=== PATIENT | female | born 1975 | race Two or more races ===

== ENCOUNTER 2019-04-23 09:47 | Emergency (ER) | payer OTHER, MEDICAID ==
[2019-04-23] MEDS ORDERED: ONDANSETRON 4 MG TAB.RAPDIS PO ONE (10:05)
--- NOTE | 2019-04-23 10:05 | ER Document Report ---
ED Medical Screen (RME) - General Chief Complaint: Abdominal Pain Stated Complaint: FEVER Time Seen by Provider: 04/23/19 09:59 Mode of Arrival: Ambulatory Information source: Parent Notes: 43-year-old female presents to ED for complaint of cough cold congestion fever nausea vomiting and abdominal pain. Mother and brother states that the patient has lost 10 pounds in the last month and a half. She states that she is eating like she normally does but she is still losing weight. Mother states she has been complaining of pain in lower abdomen. Mother states she is vomiting occasionally. Patient is nonverbal and is unable to express exactly what is going on. Mother states that child is mental retardation and autistic. Mother states she is also anemic. I have greeted and performed a rapid initial assessment of this patient. A comprehensive ED assessment and evaluation of the patient, analysis of test results and completion of medical decision making process will be conducted by an additional ED providers. - Related Data Allergies/Adverse Reactions: No Known Allergies Allergy (Verified 04/23/19 09:59)
[2019-04-23 10:46] LABS: ABSOLUTE LYMPHOCYTES (AUTO) 1.5 10^3/uL (0.5-4.7); ABSOLUTE NEUT (AUTO) 8.7 10^3/uL (1.7-8.2); BASOPHILS % (AUTO) 0.1 % (0-2); EOSINOPHILS % (AUTO) 0.2 % (0-6); HEMATOCRIT 35.5 % (36.0-47.0); HEMOGLOBIN 11.9 g/dL (12.0-15.5); LYMPHOCYTES % (AUTO) 13.3 % (13-45); MEAN CORPUSCULAR HGB CONC 33.4 g/dL (32.0-36.0); MEAN CORPUSCULAR VOLUME 81 fl (80-97); MONOCYTES % (AUTO) 8.7 % (3-13); PLATELET COUNT 213 10^3/uL (150-450); RED BLOOD COUNT 4.38 10^6/uL (3.72-5.28); RED CELL DISTRIBUTION WIDTH 14.8 % (11.5-14.0); SEGMENTED NEUTROPHILS % (AUTO) 77.7 % (42-78); TOTAL CELLS COUNTED % (AUTO) 100 %; WHITE BLOOD COUNT 11.3 10^3/uL (4.0-10.5)
[2019-04-23 10:55] LABS: APPEARANCE,URINE SLIGHTLY-CLOUDY; BILIRUBIN,URINE NEGATIVE (NEGATIVE); GLUCOSE, URINE NEGATIVE (NEGATIVE); KETONES,URINE 20 mg/dL (NEGATIVE); PROTEIN,URINE NEGATIVE (NEGATIVE); URINE SPECIFIC GRAVITY 1.024
[2019-04-23 11:01] LABS: COLOR,URINE DARK YELLOW
[2019-04-23 11:18] LABS: ALBUMIN 3.5 g/dL (3.5-5.0); ALKALINE PHOSPHATASE 139 U/L (38-126); ANION GAP 12 (5-19); ASPARTATE AMINO TRANSFERASE 37 U/L (14-36); BILIRUBIN,DIRECT 0.1 mg/dL (0.0-0.4); BILIRUBIN,TOTAL 0.5 mg/dL (0.2-1.3); BLOOD UREA NITROGEN 18 mg/dL (7-20); CALCIUM 9.8 mg/dL (8.4-10.2); CARBON DIOXIDE 25 mmol/L (22-30); CHLORIDE 106 mmol/L (98-107); GLUCOSE 146 mg/dL (75-110); TOTAL PROTEIN 6.8 g/dL (6.3-8.2)
[2019-04-23] MEDS ORDERED: IBUPROFEN SUSP 100 MG/5 ML ORAL SYRINGE PO ONE (12:05)
[2019-04-23] MEDS ORDERED: NITROFURANTOIN 5 MG/ML SUSP 60 ML PO ONE (12:20)
--- NOTE | 2019-04-23 12:41 | ER Document Report ---
ED General - General Chief Complaint: Abdominal Pain Stated Complaint: FEVER Time Seen by Provider: 04/23/19 09:59 Mode of Arrival: Ambulatory Information source: Patient, Parent, Relative Notes: 43-year-old autistic female presents emergency department with complaints of lower abdominal pain nausea vomiting fever. Mother reports that the patient has had abdominal pain for years. She reports her weight goes up and down up and down. She reports her weight has gone down during the last couple months and she has lost at least 10 pounds. Mother gives history of living in [place] but she recently retired so they moved to [place]. They are here for holidays. Mother reports before they moved to [place], when they were living in [place], the patient was evaluated by her primary care provider for lower abdominal pain. They did an ultrasound and lab test. Patient was not treated for anything. Mother reports the went to [place] on the and then they came to [place]. Mother and brother report that patient started vomiting yesterday she vomited twice and they felt like she had a fever. She felt warm. They never took her temperature. Mother and brother report that she ate cereal today. Reports past medical history of autism and anemia. Patient is not sexually active. TRAVEL OUTSIDE OF THE [place] IN LAST 30 DAYS: No - HPI Onset: Other - Abdominal pain for years vomiting twice yesterday felt warm yesterday Onset/Duration: Persistent Associated symptoms: Fever, Vomiting Exacerbated by: Denies Relieved by: Denies Similar symptoms previously: Yes Recently seen / treated by doctor: Yes - Related Data Allergies/Adverse Reactions: No Known Allergies Allergy (Verified 04/23/19 09:59) Past Medical History - General Information source: Parent - Social History Smoking Status: Never Smoker Chew tobacco use (# tins/day): No Frequency of alcohol use: None Drug Abuse: None Lives with: Family Family History: None Patient has suicidal ideation: No Patient has homicidal ideation: No - Medical History Medical History: Other - Anemia Psychiatric Medical History: Reports: Other - Autism Past Surgical History: Reports: Hx Breast Surgery - biopsy Review of Systems - Review of Systems Notes: Review HPI for review of systems., All other systems negative Physical Exam - Vital signs Vitals: Temp Pulse Resp BP Pulse Ox 97.9 F 138 H 20 141/71 H 99 04/23/19 09:54 04/23/19 09:54 04/23/19 09:54 04/23/19 09:54 04/23/19 09:54 - General General appearance: Appears well, Alert In distress: None - HEENT Head: Normocephalic, Atraumatic Eyes: Normal Conjunctiva: Normal Extraocular movements intact: Yes Eyelashes: Normal Pupils: PERRL Ears: Normal External canal: Normal Tympanic membrane: Normal Sinus: Normal Nasal: Normal Mouth/Lips: Normal Mucous membranes: Normal, Moist Pharynx: Normal. No: Erythema, Peritonsillar abscess, Retropharyngeal abscess, Tonsillar hypertrophy Neck: Normal, Supple. No: Lymphadenopathy - Respiratory Respiratory status: No respiratory distress Chest status: Nontender Breath sounds: Normal Chest palpation: Normal - Cardiovascular Rhythm: Regular Heart sounds: Normal auscultation Murmur: No - Abdominal Inspection: Normal Distension: No distension Bowel sounds: Normal Tenderness: Tender - Lower abdomen tenderness Organomegaly: No organomegaly - Back Back: Normal, Nontender. No: CVA tenderness - Extremities General upper extremity: Normal ROM General lower extremity: Normal ROM - Neurological Neuro grossly intact: Yes Cognition: Normal Orientation: AAOx4 [place] Coma Scale Eye Opening: Spontaneous [place] Coma Scale Verbal: Oriented - for person Sonu Coma Scale Motor: Obeys Commands [place] Coma Scale Total: 15 Speech: Normal - Psychological Associated symptoms: Normal affect, Normal mood - Skin Skin Temperature: Warm Skin Moisture: Dry Skin Color: Normal Course - Re-evaluation Re-evalutation: 04/23/19 12:43 43-year-old female presents with lower abdominal pain vomiting twice yesterday with subjective fever yesterday. Mother and patient's brother report she is had abdominal pain for years. She is been evaluated by her primary care provider for this and nothing has been treated. Patient is laying on the stretcher and although she seems to be bothered by the IV in her arm she is nontoxic looking. Labs show WBCs with leukocytosis at 11.3. UA shows leukocytes hematuria. Patient is tachycardia at 138. We will give her Motrin for pain p.o. fluids and some Macrobid here. Plan to discharge her on Macrobid once her heart rate comes down. Discussed transvaginal ultrasound and CT with family and they declined at this time, reports they do not think the patient would be able to stand it. They think she would need to have some kind of conscious sedation. Patient drinking p.o. fluids heart rate has come down to 1001 02. I believe patient is anxious over saline lock. We will remove her IV. Continue p.o. fluids discharged with prescription for Macrobid. Family was instructed on the importance of monitoring her symptoms return if they become worsening or they become concerned but definitely follow-up with her primary care provider when she returns to [place]. Dictation of this chart was performed using voice recognition software; therefore, there may be some unintended grammatical errors. 04/23/19 14:14 I received a call from [facility]. They do not carry Macrobid suspension. Antibiotic was switched to Keflex 500 mg p.o. twice daily for 5 days. - Vital Signs Vital signs: Temp Pulse Resp BP Pulse Ox 98.0 F 92 16 115/65 99 04/23/19 12:53 04/23/19 13:10 04/23/19 12:53 04/23/19 12:53 04/23/19 12:53 - Laboratory Result Diagrams: 04/23/19 10:33 04/23/19 10:33 Laboratory results interpreted by me: 04/23/19 04/23/19 04/23/19 10:33 10:33 10:33 WBC 11.3 H Hgb 11.9 L Hct 35.5 L RDW 14.8 H Absolute Neuts (auto) 8.7 H Creatinine 0.39 L Glucose 146 H AST 37 H Alkaline Phosphatase 139 H Urine Ketones 20 H Urine Blood SMALL H Urine Urobilinogen 4.0 H Leukocyte Esterase Rfl LARGE H Discharge - Discharge Clinical Impression: Abdominal pain Qualifiers: Abdominal location: lower abdomen, unspecified Qualified Code(s): R10.30 - Lower abdominal pain, unspecified Nausea & vomiting Qualifiers: Vomiting type: unspecified Vomiting Intractability: non-intractable Qualified Code(s): R11.2 - Nausea with vomiting, unspecified Urinary tract infection Qualifiers: Urinary tract infection type: site unspecified Hematuria presence: with hematuria Qualified Code(s): N39.0 - Urinary tract infection, site not specified Condition: Stable Disposition: HOME, SELF-CARE Instructions: Use of Eorb-Nme-Boaujpq Ibuprofen ([facility]), Nitrofurantoin ([facility]), Vomiting ([facility]), Vomiting, Infant or Child ([facility]) Additional Instructions: *Your child has been evaluated for abdominal pain, nausea vomiting, and urinary tract infection *Ensure she drinks plenty of fluids *Give medication as prescribed *Monitor her temperature, give Motrin as indicated *Follow up with a primary care provider upon return to [place] *Return to ED for worsening condition, changes, needs, vomiting increased pain *Return to the emergency department if not better within 24 hours. Prescriptions: Nitrofurantoin [Furadantin 5 mg/ml Susp] 100 mg PO BID #200 ml Forms: Elevated Blood Pressure
[2019-04-23 12:54] VITALS: BP 115/65
== END 2019-04-23 13:12 | disposition home or self-care (01) ==
LOC: ER 09:47
DX: N39.0 Urinary tract infection, site not specified (principal); R10.30 Lower abdominal pain, unspecified; R11.2 Nausea with vomiting, unspecified; R50.9 Fever, unspecified; D64.9 Anemia, unspecified; F84.0 Autistic disorder
CPT/HCPCS: 99284; 36415; 83690; 84703; 85025; 80053; 81001; S0119; J3490